=== PATIENT | female | born 1970 | race American Indian/Alaskan Native ===

== ENCOUNTER 2017-03-27 15:56 | Emergency (ER) | payer MEDICAID, OTHER ==
--- NOTE | 2017-03-27 16:12 | C.PDOC ---
History Of Present Illness 46 y/o female c/o headache for 2 days. Headache is similar to previous headaches. Pain radiates from the left upper shoulder to the base of the skull. Reports being under a lot of stress for work. Reports palpation, chest tightness , and vomiting. Denies weakness, numbness, or visual changes. Time Seen by Provider: 03/27/17 16:00 History Per: Patient History/Exam Limitations: no limitations Onset/Duration Of Symptoms: Days (2) Current Symptoms Are (Timing): Still Present Severity: Mild Quality: Aching Associated Symptoms: Nausea, Vomiting. denies: Blurred Vision, Extremity Weakness Recent travel outside of the [place]: No Additional History Per: Patient Past Medical History Reviewed: Historical Data, Nursing Documentation, Vital Signs Vital Signs: Last Vital Signs Temp 98.7 F 03/27/17 18:06 Pulse 90 03/27/17 18:06 Resp 18 03/27/17 18:06 BP 124/76 03/27/17 18:06 Pulse Ox 100 03/27/17 18:21 Family History: States: Unknown Family Hx - Social History Hx Alcohol Use: No Hx Substance Use: No - Immunization History Hx Tetanus Toxoid Vaccination: No Hx Influenza Vaccination: No Hx Pneumococcal Vaccination: No Review Of Systems Except As Marked, All Systems Reviewed And Found Negative. Eyes: Negative for: Vision Change Cardiovascular: Positive for: Palpitations Gastrointestinal: Positive for: Nausea, Vomiting Neurological: Positive for: Headache. Negative for: Weakness, Numbness Physical Exam - Physical Exam Appears: Non-toxic, No Acute Distress Skin: Warm, Dry Head: Atraumatic, Normacephalic Eye(s): right: Normal Inspection, left: Other (Mild Conjunctival injection) Neck: Supple Cardiovascular: Rhythm Regular, No Murmur Respiratory: Normal Breath Sounds, No Rales, No Rhonchi, No Wheezing Back: No Vertebral Tenderness, Paraspinal Tenderness (supraspinatus and trapezious tenderness that radiates to the base of the skull, indurated knot.) Neurological/Psych: Oriented x3, Normal Speech, Normal Cognition, Other (No focal deficit) ED Course And Treatment ECG: Interpreted By Me, Viewed By Me ECG Rhythm: Sinus Rhythm ECG Interpretation: Normal Interpretation Of ECG: Normal intervals and axis. NO ST/T wave changes. Rate From EC O2 Sat by Pulse Oximetry: 100 (RA) Pulse Ox Interpretation: Normal Medical Decision Making Medical Decision Making: Impression: * Headache for the past 2 days. Plans: * Xanax * Toradol * Zofran * EKG 17:10. Patient reports that her headache is better. DDx: Muscle tension headache, anxiety reaction. Disposition - Disposition Referrals: [facility] [Outside] Disposition: HOME/ ROUTINE Disposition Time: 17:20 Condition: GOOD Additional Instructions: take fioricet as needed of tension COBOS as needed at night when not operating a car.Otherwise take motrin or aleve for headaches.Apply warm compresses to base of neck for muscle spasms.Take xanax as needed for anxiety Prescriptions: Acetaminophen/Butalbital/Caf [Fioricet] 1 tab PO TID PRN #12 tab PRN Reason: Headache ALPRAZolam [Xanax] 0.25 mg PO TID PRN #15 tab PRN Reason: Anxiety Gentamicin Sulfate [Garamycin 0.3% Opth] 2 drop OS QID #5 ml Forms: [employer] (Sammarinese) - Clinical Impression Clinical Impression: Anxiety, Headache, Conjunctivitis - Scribe Statement The provider has reviewed the documentation as recorded by the Scribe Yogi tang All medical record entries made by the Scribe were at my direction and personally dictated by me. I have reviewed the chart and agree that the record accurately reflects my personal performance of the history, physical exam, medical decision making, and the department course for this patient. I have also personally directed, reviewed, and agree with the discharge instructions and disposition.
[2017-03-27 16:27] VITALS: O2SAT 100
[2017-03-27 18:06] VITALS: BP 124/76; PULSE 90; RESP 18; TEMP 98.7
== END 2017-03-27 18:26 | disposition home or self-care (01) ==
LOC: C.ER 15:56
DX: F41.9 Anxiety disorder, unspecified (principal); R51 Headache; H10.9 Unspecified conjunctivitis
CPT/HCPCS: 96372; 99284; J1885